=== PATIENT | female | born 1945 | race Caucasian/White ===

== ENCOUNTER → 2016-06-20 | Outpatient (CLI) | payer BC, MEDICARE ==
--- NOTE | 2016-06-20 13:59 | RADIOLOGY REPORT PS360 ---
CERVICAL SPINE 4 OR 5 VIEWS ORDERING PHYSICIAN : Nicholas Nguyen MD PATIENT AGE: 70 years GENDER: Female INDICATION: CERVICOGENIC PARADA Cervicogenic headache patient states old C-spine injury with surgery anterior fusion lower C-spine TECHNIQUE: 5 view C-spine series COMPARISON: Previous T-spine study from 02/23/2014 FINDINGS Anterior fusion C5-C6-C7, disc spacer devices at each of the interposed disc spaces. Good alignment here. Good position. C4/5 disc is intact. C3/4 disc intact scant with question of perhaps 1 mm retrolisthesis of C3 on C4.. There is prominent facet arthropathy/hypertrophy bilaterally at the upper C-spine. C3/4 Facet hypertrophy most exuberant on the RIGHT at C3/4 followed by C4/5 This facet hypertrophy on the right, along with uncovertebral joint hypertrophy appears to yield significant encroachment upon the right foramen at this C3/4 level. Facet hypertrophy yields mild encroachment upon right C4/5 foramen. . Less pronounced facet hypertrophy to the LEFT at the at C3/4. C4/5 C5-C6 . Findings are similar to previous study but better delineated today. C1-C2 relationships normal. Apices the lungs are clear. IMPRESSION ...... Long-standing anterior fusion C5-C6 appear stable. Satisfactory alignment C-spine. Most notable are the degenerative facet changes upper C-spine bilateral.- Most evident to right C3/4 followed by C4/5. C3/4 with most evident right foraminal encroachment due to facet hypertrophy & uncovertebral joint hypertrophy
--- NOTE | 2016-06-20 14:02 | RADIOLOGY REPORT PS360 ---
CHEST(2 VIEWS-NOT PORTABLE) ORDERING PHYSICIAN : Nicholas Nguyen MD PATIENT AGE: 70 years GENDER: Female INDICATION: CERVICOGENIC PARADA Degenerative neck headache. Neck pain. Chest pain. TECHNIQUE: PA and lateral chest cervical COMPARISON: Previous 2 view chest film from 04/24/2012 FINDINGS Lungs are well expanded and clear with no active disease. No acute findings. Heart is normal in size iglesia and mediastinal structures appear stable. Slightly more tortuous descending aorta versus 2012. Could reflect underlying hypertension but nonspecific observation. There are some mild degenerative changes throughout the spine with slight disc space narrowing and early intramarginal osteophytes. Mild levocurvature lower T-spine and dextrocurvature upper L-spine noted. Previous anterior fusion lower C-spine as discussed on C-spine report IMPRESSION: Stable chest with nothing definitely acute. Minor observations in text
== END ==
LOC: RAD 10:08
DX: G44.89 Other headache syndrome (principal)

== ENCOUNTER → 2017-04-15 | Outpatient (CLI) | payer BC, MEDICARE ==
--- NOTE | 2017-04-15 13:32 | RADIOLOGY REPORT PS360 ---
History and Indications: Chest pressure, shortness of breath, hyperlipidemia and family history Procedure: Patient exercised on Rd protocol 5 minutes and 45 seconds, resting heart rate was 83 beats prominent, resting blood pressure 128/74, with exercise maximum heart rate achieved was 1 61 bpm is greater than 85% of the maximum predicted heart rate and a blood pressure was 191/96. Test was stopped due to chest pressure and shortness of breath. Patient has adequate exercise capacity achieved 7mets of workload on treadmill, the blood pressure response to exercise was adequate. Electrocardiogram: Resting electrocardiogram showed sinus rhythm, with exercise there is 1.5 to [address] segment depression noted from the baseline EKG. The EKG portion of the exercise Myoview is positive for ischemia. Cardiac stress and resting SPECT images: Cardiac stress and rest SPECT images were obtained using technetium 99 Myoview 10.2 mCi at rest and 31.6 mCi at stress, gated SPECT further analysis of segmental wall motion and calculation of the ejection fraction also done. Cardiac stress and resting SPECT images show decreased tracer activity in the anterior, anteroapical and anteroseptal wall which improves on the resting images suggestive of reversible ischemia, computer derived ejection fraction is 63% with mild anteroapical hypokinesis. Right ventricle is normal size and contractility. Conclusion: 1. The EKG portion of the exercise Myoview is positive for ischemia. Patient has adequate exercise capacity achieved 7mets of workload on treadmill, the blood pressure response to exercise was adequate. Test was started due to chest pressure. 2. Scintigraphic evidence of mild reversible ischemia involving the anteroapical, anterior and anteroseptal wall. Computer derived ejection fraction is 63% with segmental wall motion abnormality described above. Right ventricle is normal size and contractility. 3. Abnormal exercise Myoview study.
--- NOTE | 2017-04-15 16:31 | CARDIOVASCULAR REPORT ---
"Cerebrovascular Exam Indications: 785.9 Bruit. IMPRESSIONS 1. The bilateral vertebral arteries are patent with normal antegrade flow. 2. Study suggests less than 20% stenosis involving the right internal carotid artery and the left internal carotid artery. 3. Tortuous carotid arteries seen bilaterally. Carotid duplex study. Complete study and Doppler flow study including spectral analysis, color and grossman scale imaging. Height: Height: 167.6cm. Height: 66in. Weight: Weight: 83.9kg. Weight: 184.6lb. Body mass index: BMI: 29.9kg/m^2. Body surface area: BSA: 2m^2. Location: Vascular laboratory. Patient status: Outpatient. Incidental findings: A thyroid cyst in the right lobe is noted incidentally. A thyroid cyst in the left lobe is noted incidentally. Tables: Arterial flow: + +--------+--------+ |Location |V sys |V ed | + +--------+--------+ |Right CCA - proximal|130cm/s |36.1cm/s| + +--------+--------+ |Right CCA - distal |112cm/s |37.7cm/s| + +--------+--------+ |Right ECA |103cm/s |--------| + +--------+--------+ |Right ICA - proximal|91.5cm/s|22.6cm/s| + +--------+--------+ |Right ICA - mid |75cm/s |26.2cm/s| + +--------+--------+ |Right ICA - distal |75.9cm/s|32.5cm/s| + +--------+--------+ |Right vertebral |54.5cm/s|--------| + +--------+--------+ |Left CCA - proximal |93.7cm/s|25cm/s | + +--------+--------+ |Left CCA - distal |86.6cm/s|27.9cm/s| + +--------+--------+ |Left ECA |89.3cm/s|--------| + +--------+--------+ |Left ICA - proximal |82.4cm/s|27.9cm/s| + +--------+--------+ |Left ICA - mid |114cm/s |41.2cm/s| + +--------+--------+ |Left ICA - distal |101cm/s |35.5cm/s| + +--------+--------+ |Left vertebral |35.3cm/s|--------| + +--------+--------+ Velocity ratios: + + + + + + | |Right, V sys|Right, V ed|Left, V sys|Left, V ed| + + + + + + |Max ICA/dist CCA|0.82 |0.86 |1.32 |1.48 | + + + + + + (Report amended ) Electronically signed by: Valdemar Lee [id number]"
== END ==
LOC: RAD 07:26
DX: R07.2 Precordial pain (principal); R09.89 Other specified symptoms and signs involving the circulatory and respiratory systems
CPT/HCPCS: A9502

== ENCOUNTER → 2017-04-16 | Outpatient (CLI) | payer BC, MEDICARE ==
--- NOTE | 2017-04-16 18:02 | RADIOLOGY REPORT PS360 ---
US PELVIS-TRANSVAGINAL ONLY Ordering Physician: Melo Santo MD Patient Age: 71 years: Female HISTORY: POST MENOPAUSAL BLEEDING TECHNIQUE: Transvaginal pelvic ultrasound COMPARISON :None available FINDINGS Patient has had a complete hysterectomy. Also bladder tuck . Apparently reports bleeding? .. Again no uterus is evident. No appreciable abnormalities with ultrasound. No free fluid at pelvis. Pelvic ultrasound reveals no masses at the lower pelvis. Only bowel loops encountered. . IMPRESSION: Hysterectomy. On no abnormalities evident with ultrasound. Only bowel loops encountered. No pelvic fluid. No masses.
--- NOTE | 2017-04-24 08:37 | RADIOLOGY REPORT PS360 ---
DIG MAMM-SCREEN JAMAL W/CAD ORDERING PHYSICIAN : Melo Santo MD PATIENT AGE: 71 years GENDER: Female COMPARISON: April 2016, 2014, 2013March 2013 HISTORY:6 female hormones. Previous percutaneous biopsy bilateral. hx sheet States previous Excisional biopsy left breast benign. Family history paternal grandmother with breast cancer postmenopausal. TECHNIQUE: Std CC & MLO images were obtained. R2 CAD reviewed. FINDINGS: No significant change since previous studies . Moderately dense inhomogeneous breast tissue most evident upper-outer quadrant both breast RIGHT BREAST: Scattered areas focal asymmetric density again noted and appear similar to old studies dating back to 2012 & 2011 with no significant change. I would encourage annual follow-up & self breast examination in this patient. Previous percutaneous biopsy metallic marker upper-outer quadrant right breast . LEFT BREAST: No significant new findings left breast. Follow-up in one year adequate. Previous percutaneous biopsy metallic marker medial/inferior left breast IMPRESSION: No new areas of significant concern; but would recommend follow-up in not over one year & encourage self breast exam. Moderately dense breast. Moderate areas asymmetry bilaterally noted but with no significant appearing change Previous percutaneous biopsy metallic marker evident bilaterally. BI-RADS CATEGORY: 2_Benign RECOMMENDED FOLLOWUP: 11M- 12 MONTH FOLLOW-UP (A letter has been sent to the patient regarding results of the study.)
== END ==
LOC: RAD 15:22
DX: Z12.31 Encounter for screening mammogram for malignant neoplasm of breast (principal); N95.1 Menopausal and female climacteric states; N95.0 Postmenopausal bleeding
CPT/HCPCS: G0202

== ENCOUNTER 2017-04-21 07:25 | Day surgery (SDC) | payer BC, MEDICARE ==
[2017-04-21 08:01] LABS: LYMPH # 2.3 K/mm3 (0.7-4.5); LYMPH % 42.6 % (10-50.0)
[2017-04-21 08:06] LABS: BUN 15 mg/dL (7-18); GFR (ESTIMATED) 99 ML/MIN (59-)
--- NOTE | 2017-04-21 11:07 | RADIOLOGY REPORT PS360 ---
CARDIAC CATHETERIZATION DATE OF CATHETERIZATION:04/21/2017 10:42 AM PROCEDURES: 1. Left heart catheterization 2. Left ventriculogram 3. Selective coronary angiogram INDICATION FOR TEST: 1. Abnormal Myoview 2. Angina pectoris 3. Risk factors for coronary artery disease Informed consent was obtained prior to the procedure. COMPLICATIONS: None ESTIMATED BLOOD LOSS: Less than 10 ml. TECHNIQUE: One percent lidocaine used to anesthetize the right anterior aspect of the wrist. The right radial artery was accessed via the Seldinger technique. A 6 Malay sheath was placed in the right radial artery. 2.5 mg of verapamil, 800 mcg of nitroglycerin and 5000 U Heparin were given through the arterial sheath. The trap catheter was also used to perform left heart catheterization and left ventriculography. At the end of the procedure the patient was transferred to the post-op holding area in stable condition for arterial sheath removal. ANGIOGRAPHIC RESULTS: 1. The left main artery normal 2. The left anterior descending artery normal 3. The circumflex artery normal 4. The right coronary artery dominant normal 5. The TORRES ventriculogram reveals 65% 6. The left ventricular end-diastolic pressure 10 mmHg IMPRESSION: 1. Normal coronary arteries. 2. Normal ejection fraction 3. Normal left ventricular end-diastolic pressure PLAN: 1. Evaluation noncardiac chest pain 2. Risk factor modification
[2017-04-21 14:25] VITALS: BP 119/66
== END 2017-04-21 14:43 | disposition home or self-care (01) ==
LOC: CATHLAB 07:25
PROVIDERS: Internal Medicine
PROC: B2111ZZ Fluoroscopy of Multiple Coronary Arteries using Low Osmolar Contrast (ICD-10-PCS; 2017-04-21)
PROC: B2151ZZ Fluoroscopy of Left Heart using Low Osmolar Contrast (ICD-10-PCS; 2017-04-21)
PROC: 4A023N7 Measurement of Cardiac Sampling and Pressure, Left Heart, Percutaneous Approach (ICD-10-PCS; principal; 2017-04-21 08:00)
DX: R07.9 Chest pain, unspecified (principal); R94.39 Abnormal result of other cardiovascular function study; I10 Essential (primary) hypertension
CPT/HCPCS: C1725; C1769; J1644; Q9967